=== PATIENT | male | born 1940 | race Caucasian/White ===

== ENCOUNTER → 2016-08-07 | Outpatient (CLI) | payer MEDICARE, BC ==
[2016-08-07 08:41] LABS: ALANINE AMINOTRANSFERASE 23 U/L (21-72); ALKALINE PHOSPHATASE 66 U/L (38-126); ANION GAP 11 (5-19); ASPARTATE AMINO TRANSFERASE 19 U/L (17-59); BILIRUBIN,DIRECT 0.2 mg/dL (0.0-0.4); BILIRUBIN,TOTAL 0.9 mg/dL (0.2-1.3); BLOOD UREA NITROGEN 15 mg/dL (7-20); CALCIUM 9.1 mg/dL (8.4-10.2); CARBON DIOXIDE 23 mmol/L (22-30); CHLORIDE 105 mmol/L (98-107); CHOLESTEROL 197.21 mg/dL (0-200); Direct HDL 55 mg/dL (>40); GLUCOSE 99 mg/dL (75-110); POTASSIUM 4.7 mmol/L (3.6-5.0); SODIUM 139.2 mmol/L (137-145); TRIGLYCERIDES 92 mg/dL (<150)
[2016-08-07 08:52] LABS: DIRECT LDL 105 mg/dL (<100)
== END ==
LOC: OD 07:12
PROVIDERS: ATTEND Internal Medicine Cardiovascular Disease
DX: Z79.899 Other long term (current) drug therapy (principal)
CPT/HCPCS: 36415; 80053; 80061

== ENCOUNTER 2018-12-14 16:09 | Emergency (ER) | payer MEDICARE, BC ==
[2018-12-14] MEDS ORDERED: NITROGLYCERIN 0.4 MG/TAB 25 TAB/BOTTLE SL PRN (16:39)
--- NOTE | 2018-12-14 16:43 | ER Document Report ---
ED Medical Screen (RME) - General Chief Complaint: Chest Pain Stated Complaint: CHEST PAIN Time Seen by Provider: 12/14/18 16:34 Primary Care Provider: PHILIPP DE JESUS MD [Primary Care Provider] - Follow up as needed Notes: Patient is 78-year-old male with past medical history of hypertension, CABG, stents placed in 2018, hyperlipidemia who presents to the emergency department with chest pain. His chest type pain started about 3 hours ago pain is in the middle of his chest. He took 325 mg of aspirin earlier. He also took a nitroglycerin. Patient states that he also has bilateral arm pain. Patient states that the pain is worse when he lifts his arms. Exam: S1, S2. I have greeted and performed a rapid initial assessment of this patient. A comprehensive ED assessment and evaluation of the patient, analysis of test results and completion of medical decision making process will be conducted by an additional ED providers. TRAVEL OUTSIDE OF THE [place] IN LAST 30 DAYS: No - Related Data Allergies/Adverse Reactions: No Known Allergies Allergy (Verified 12/14/18 16:35) Past Medical History - Past Medical History Cardiac Medical History: Reports: Hx Hypercholesterolemia, Hx Hypertension Denies: Hx Heart Attack Pulmonary Medical History: Denies: Hx Asthma, Hx Tuberculosis Neurological Medical History: Denies: Hx Cerebrovascular Accident, Hx Seizures GI Medical History: Reports: Hx Gastroesophageal Reflux Disease. Denies: Hx Hepatitis, Hx Hiatal Hernia, Hx Ulcer Psychiatric Medical History: Denies: Hx Depression Infectious Medical History: Denies: Hx Hepatitis Past Surgical History: Reports: Hx Appendectomy, Hx Cardiac Surgery - CABG x2, Hx Open Heart Surgery. Denies: Hx Pacemaker Physical Exam - Vital signs Vitals: Temp Pulse Resp BP Pulse Ox 98.6 F 48 L 18 224/82 H 99 12/14/18 16:29 12/14/18 16:29 12/14/18 16:29 12/14/18 16:29 12/14/18 16:29 Course - Vital Signs Vital signs: Temp Pulse Resp BP Pulse Ox 98.6 F 48 L 18 224/82 H 99 12/14/18 16:29 12/14/18 16:29 12/14/18 16:29 12/14/18 16:29 12/14/18 16:29 Doctor's Discharge - Discharge Referrals: PHILIPP DE JESUS MD [Primary Care Provider] - Follow up as needed
--- NOTE | 2018-12-14 16:59 | RADIOLOGY REPORT (SQ) ---
EXAM DESCRIPTION: CHEST SINGLE VIEW COMPLETED DATE/TIME: 12/14/2018 4:50 pm REASON FOR STUDY: chest pain COMPARISON: 03/14/2013 NUMBER OF VIEWS: One view. TECHNIQUE: Single frontal radiographic view of the chest acquired. LIMITATIONS: None. FINDINGS: LUNGS AND PLEURA: Chronic changes in left costophrenic angle and base. No consolidation o r effusions. No pneumothorax. MEDIASTINUM AND HILAR STRUCTURES: No masses. Contour normal. HEART AND VASCULAR STRUCTURES: Heart normal in size. Normal vasculature. BONES: No acute findings. HARDWARE: Sternotomy wires are in place. OTHER: No other significant finding. IMPRESSION: Chronic changes in the left base and costophrenic angle. No acute findings. TECHNICAL DOCUMENTATION: JOB ID: [id number]- All Rights Reserved Reading location - IP/workstation name: [email or web address]
[2018-12-14 17:19] LABS: ABSOLUTE EOSINOPHILS # (AUTO) 0.1 10^3/uL (0.0-0.6); ABSOLUTE LYMPHOCYTES (AUTO) 1.4 10^3/uL (0.5-4.7); ABSOLUTE MONOCYTES (AUTO) 0.6 10^3/uL (0.1-1.4); ABSOLUTE NEUT (AUTO) 4.5 10^3/uL (1.7-8.2); BASOPHILS % (AUTO) 0.4 % (0-2); EOSINOPHILS % (AUTO) 1.7 % (0-6); HEMATOCRIT 43.2 % (37.9-51.0); HEMOGLOBIN 14.6 g/dL (13.5-17.0); LYMPHOCYTES % (AUTO) 21.1 % (13-45); MEAN CORPUSCULAR HEMOGLOBIN 32.1 pg (27.0-33.4); MEAN CORPUSCULAR HGB CONC 33.7 g/dL (32.0-36.0); MEAN CORPUSCULAR VOLUME 95 fl (80-97); MONOCYTES % (AUTO) 8.6 % (3-13); PLATELET COUNT 166 10^3/uL (150-450); RED BLOOD COUNT 4.53 10^6/uL (4.35-5.55); RED CELL DISTRIBUTION WIDTH 12.9 % (11.5-14.0); SEGMENTED NEUTROPHILS % (AUTO) 68.2 % (42-78); TOTAL CELLS COUNTED % (AUTO) 100 %; WHITE BLOOD COUNT 6.6 10^3/uL (4.0-10.5)
[2018-12-14 17:34] LABS: ALBUMIN 4.4 g/dL (3.5-5.0); ALKALINE PHOSPHATASE 62 U/L (38-126); ANION GAP 12 (5-19); ASPARTATE AMINO TRANSFERASE 28 U/L (17-59); BILIRUBIN,DIRECT 0.2 mg/dL (0.0-0.4); BILIRUBIN,TOTAL 0.5 mg/dL (0.2-1.3); BLOOD UREA NITROGEN 16 mg/dL (7-20); CALCIUM 9.4 mg/dL (8.4-10.2); CARBON DIOXIDE 22 mmol/L (22-30); CHLORIDE 105 mmol/L (98-107); CREATINE KINASE 81 U/L (55-170); GLUCOSE 87 mg/dL (75-110); POTASSIUM 4.2 mmol/L (3.6-5.0); TOTAL PROTEIN 7.6 g/dL (6.3-8.2)
[2018-12-14] MEDS ORDERED: ASPIRIN 81 MG TABLET, CHEWABLE PO ONE (17:35)
[2018-12-14] MEDS ORDERED: NITROGLYCERIN/D5W 50 MG/250 ML RTUINJ IV PRN (17:35)
[2018-12-14] MEDS ORDERED: PANTOPRAZOLE SODIUM 40 MG VIAL IV ONE (17:36)
[2018-12-14 17:45] LABS: CREATINE KINASE MB 1.17 ng/mL (<4.55)
[2018-12-14 17:48] LABS: TROPONIN I < 0.012 ng/mL
[2018-12-14 23:16] VITALS: BP 157/67
--- NOTE | 2018-12-15 03:55 | ER Document Report ---
Entered by ANASTASIIA DOS SANTOS SCRIBE 12/14/181934 Acting as scribe for:NANCY REBOLLEDO DO ED Cardiac - General Chief Complaint: Chest Pain Stated Complaint: CHEST PAIN Time Seen by Provider: 12/14/18 16:34 Primary Care Provider: PHILIPP DE JESUS MD [ACTIVE STAFF] - Follow up as needed Notes: Patient is a pleasant 78-year-old male with a history of MT and stents placed last year at [facility] in May who comes in complaining of chest pain. Patient took 2-year-old nitroglycerin at home with no relief of symptoms. No nausea. No trouble breathing. No other symptoms. Initially reported the pain was worse with movement but now states is at rest as well. TRAVEL OUTSIDE OF THE [place] IN LAST 30 DAYS: No - Related Data Allergies/Adverse Reactions: No Known Allergies Allergy (Verified 12/14/18 16:35) Past Medical History - Social History Smoking Status: Never Smoker Chew tobacco use (# tins/day): No Frequency of alcohol use: Social Family History: Reviewed & Not Pertinent Patient has suicidal ideation: No Patient has homicidal ideation: No - Past Medical History Cardiac Medical History: Reports: Hx Hypercholesterolemia, Hx Hypertension Denies: Hx Heart Attack Pulmonary Medical History: Denies: Hx Asthma, Hx Tuberculosis Neurological Medical History: Denies: Hx Cerebrovascular Accident, Hx Seizures GI Medical History: Reports: Hx Gastroesophageal Reflux Disease. Denies: Hx Hepatitis, Hx Hiatal Hernia, Hx Ulcer Psychiatric Medical History: Denies: Hx Depression Infectious Medical History: Denies: Hx Hepatitis Past Surgical History: Reports: Hx Appendectomy, Hx Cardiac Surgery - CABG x2, Hx Open Heart Surgery. Denies: Hx Pacemaker Review of Systems - Review of Systems Constitutional: No symptoms reported EENT: No symptoms reported Cardiovascular: See HPI Respiratory: No symptoms reported Gastrointestinal: No symptoms reported Genitourinary: No symptoms reported Male Genitourinary: No symptoms reported Musculoskeletal: No symptoms reported Skin: No symptoms reported Hematologic/Lymphatic: No symptoms reported Neurological/Psychological: No symptoms reported Physical Exam - Vital signs Vitals: Temp Pulse Resp BP Pulse Ox 98.6 F 48 L 18 224/82 H 99 12/14/18 16:29 12/14/18 16:29 12/14/18 16:29 12/14/18 16:29 12/14/18 16:29 Interpretation: Normal - General General appearance: Appears well, Alert - HEENT Head: Normocephalic, Atraumatic Eyes: Normal Pupils: PERRL - Respiratory Respiratory status: No respiratory distress Chest status: Nontender Breath sounds: Normal Chest palpation: Normal - Cardiovascular Rhythm: Regular Heart sounds: Normal auscultation Murmur: No - Abdominal Inspection: Normal Distension: No distension Bowel sounds: Normal Tenderness: Nontender Organomegaly: No organomegaly - Back Back: Normal, Nontender - Extremities General upper extremity: Normal inspection, Nontender, Normal color, Normal ROM, Normal temperature General lower extremity: Normal inspection, Nontender, Normal color, Normal ROM, Normal temperature, Normal weight bearing. No: Pallavi's sign - Neurological Neuro grossly intact: Yes Cognition: Normal Orientation: AAOx4 Yolanda Coma Scale Eye Opening: Spontaneous Yolanda Coma Scale Verbal: Oriented Yolanda Coma Scale Motor: Obeys Commands Yolanda Coma Scale Total: 15 Speech: Normal Motor strength normal: LUE, RUE, LLE, RLE Sensory: Normal - Psychological Associated symptoms: Normal affect, Normal mood - Skin Skin Temperature: Warm Skin Moisture: Dry Skin Color: Normal Course - Re-evaluation Re-evalutation: 12/14/18 18:40 Patient reports chest pain is still present and unchanged since arriving here. Patient is a 78 male with a history of MT, coronary artery disease and stents p laced last year who comes in with ongoing chest pain. Patient initially hypertensive as well. Nitroglycerin drip initiated. Patient chest pain improving. No acute findings on repeat EKG the patient is bradycardic. He apparently takes nicardipine at home. Discussed with hospitalist service at [facility] and will be transferred with concern for unstable angina. Initial troponin negative. Patient is agreeable to this plan and stable at the time of transfer. - Vital Signs Vital signs: Temp Pulse Resp BP Pulse Ox 98.1 F 43 L 18 157/67 H 98 12/14/18 16:44 12/14/18 16:44 12/14/18 23:01 12/14/18 23:01 12/14/18 23:01 - Laboratory Result Diagrams: 12/14/18 17:04 12/14/18 17:04 Critical Care Note - Critical Care Note Total time excluding time spent on procedures (mins): 35 - Evaluation and management of ACS, multiple re-evaluations, counseling of patient and family Discharge - Discharge Clinical Impression: Unstable angina Condition: Stable Disposition: [facility] Referrals: PHILIPP DE JESUS MD [ACTIVE STAFF] - Follow up as needed I personally performed the services described in the documentation, reviewed and edited the documentation which was dictated to the scribe in my presence, and it accurately records my words and actions.
--- NOTE | 2018-12-15 07:29 | EKG REPORT ---
SEVERITY:- ABNORMAL ECG - SINUS BRADYCARDIA NONSPECIFIC T ABNORMALITIES, ANT-LAT LEADS : Confirmed by: Charles Penaloza MD 15-Dec-2018 07:29:25
--- NOTE | 2018-12-15 07:30 | EKG REPORT ---
SEVERITY:- ABNORMAL ECG - SINUS BRADYCARDIA NONSPECIFIC T ABNORMALITIES, LATERAL LEADS : Confirmed by: Charles Penaloza MD 15-Dec-2018 07:29:53
== END 2018-12-14 23:24 | disposition short-term general hospital (02) ==
LOC: ER 16:09
DX: I20.0 Unstable angina (principal); R07.9 Chest pain, unspecified; I25.2 Old myocardial infarction; I10 Essential (primary) hypertension
CPT/HCPCS: 93005; 36415; 82553; 82550; 83735; 85025; 80053; 84484; 71045; 93010; C9113; J3490; 96365; 96366; 96375; 99291; S0164